=== PATIENT | male | born 1960 | race Caucasian/White ===

== ENCOUNTER 2017-11-27 12:13 | Emergency (ER) | payer BC, OTHER ==
[2017-11-27] MEDS ORDERED: LIDOCAINE 2% 10 ML MDV ONE (14:37)
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
[2017-11-27] MEDS ORDERED: TETANUS/DIPHTHERIA/PERTUSSIS 0.5 ML SYRINGE IM ONE (15:32)
[2017-11-27 16:12] VITALS: BP 143/77
== END 2017-11-27 16:06 | disposition home or self-care (01) ==
LOC: ED 12:13
DX: S61.412A Laceration without foreign body of left hand, initial encounter (principal); W26.0XXA Contact with knife, initial encounter; Y93.G1 Activity, food preparation and clean up; Y92.009 Unspecified place in unspecified non-institutional (private) residence as the place of occurrence of the external cause; F17.200 Nicotine dependence, unspecified, uncomplicated
CPT/HCPCS: 12002; 99283

== ENCOUNTER 2018-07-17 13:48 | Outpatient (CLI) | payer BC ==
--- NOTE | 2018-07-17 16:13 | XRAY Report ---
Reason: LEFT THUMB PAIN Procedure Date: 07/17/2018 Accession Number: [id number] / [id number] Procedure: XRN - Finger(s) LT CPT Code: FULL RESULT: EXAM: LEFT FIRST DIGIT RADIOGRAPHY EXAM DATE: 07/17/2018 02:00 PM. CLINICAL HISTORY: Left thumb pain. COMPARISON: None. TECHNIQUE: 3 views. FINDINGS: Bones: Normal. No fracture or bone lesion. Joints: There are mild degenerative changes of the first carpometacarpal joint. Along the dorsal aspect of the first interphalangeal joint is a calcific density with additional soft tissue calcification, felt to be a post-traumatic finding. Soft Tissues: Normal. No soft tissue swelling. IMPRESSION: Post-traumatic calcifications with possible bone fragment in the dorsal joint space of the first interphalangeal joint. Finding is best seen on the lateral view. RADIA
== END 2018-07-17 13:49 | disposition home or self-care (01) ==
LOC: DI.N 13:48
PROVIDERS: ATTEND Specialist
DX: M79.645 Pain in left finger(s) (principal); M25.842 Other specified joint disorders, left hand
CPT/HCPCS: 73140

== ENCOUNTER 2019-01-07 12:36 | Outpatient (CLI) | payer BC | END 2019-01-07 12:37 | disposition short-term general hospital (02) | LOC: EMS 12:36 | PROVIDERS: ATTEND Surgery | DX: S71.101A Unspecified open wound, right thigh, initial encounter (principal); W20.8XXA Other cause of strike by thrown, projected or falling object, initial encounter; Y93.89 Activity, other specified; Y92.009 Unspecified place in unspecified non-institutional (private) residence as the place of occurrence of the external cause | CPT/HCPCS: A0425; A0427 ==

== ENCOUNTER 2019-10-21 12:15 | Emergency (ER) | payer BC ==
[2019-10-21] MEDS ORDERED: HEPARIN 25000UNITS/500ML (D5W) 25,000 UNIT/500 ML BAG IV STA (12:41)
[2019-10-21] MEDS ORDERED: ASPIRIN CHEW 81 MG TABLET PO STA (12:41)
--- NOTE | 2019-10-21 12:42 | ED Physician Documentation ---
History of Present Illness - Stated complaint Stated Complaint: SOA,BILAT ARM/SHOULDER PX,DIZZY - CLINIC REFERRAL - Chief complaint Chief Complaint: Cardiac - Additonal information Additional information: This is a 59-year-old male who presents with chest pain radiating to his bilateral arms since last night. This began around dinnertime maybe around 7:30PM, he describes the pain as a pressure in the center of his chest and he has achiness in all deltoids and triceps. He has had a bit of nausea as well, no vomiting. He is a longtime smoker, he denies any history of diabetes. He has never had a cardiac catheterization. He Saw his primary care provider this morning who sent him here for further evaluation as they did not have an EKG machine and he was having chest pain. He currently states his chest pain is 5 out of 10, and his achiness in his arms is a bit worse at maybe 8-9 out of 10. Review of Systems Constitutional: denies: Fever Cardiac: reports: Chest pain / pressure Respiratory: denies: Dyspnea GI: reports: Nausea. denies: Abdominal Pain Musculoskeletal: denies: Neck pain Neurologic: denies: Generalized weakness, Near syncope Immunocompromised: denies: Immunocompromised PD PAST MEDICAL HISTORY - Past Medical History Respiratory: Pneumonia - Past Surgical History Past Surgical History: Yes HEENT: Rhinoplasty, Tonsil/Adenoidectomy - Present Medications Home Medications: Ambulatory Orders Medication Instructions Recorded Confirmed Ibuprofen [Motrin] 400 mg PO Q6H PRN #30 tablet 02/21/14 oxyCODONE/ACET 5/325 [Percocet 5 1 - 2 each PO Q6H PRN #20 tablet 02/21/14 mg/325 mg] - Allergies Allergies/Adverse Reactions: Allergies Allergy/AdvReac Type Severity Reaction Status Date / Time Penicillins Allergy Mild Rash Verified 10/21/19 12:27 - Social History Does the pt smoke?: Yes Smoking Status: Current every day smoker Does the pt drink ETOH?: No Does the pt have substance abuse?: No - Immunizations Immunizations are current?: Yes PD ED PE NORMAL - Vitals Vital signs reviewed: Yes - General General: Alert and oriented X 3, No acute distress - HEENT HEENT: PERRL - Neck Neck: Supple, no meningeal sign - Cardiac Cardiac: RRR, No murmur - Respiratory Respiratory: Clear bilaterally - Abdomen Abdomen: Soft, Non distended - Derm Derm: Warm and dry - Extremities Extremities: No deformity - Neuro Neuro: Alert and oriented X 3 - Psych Psych: Normal mood, Normal affect Results - Vitals Vitals: Vital Signs - 24 hr 10/21/19 10/21/19 12:24 12:59 Temperature 36.4 C L Heart Rate 58 L 77 Respiratory 18 16 Rate Blood Pressure 148/106 H 144/87 H O2 Saturation 98 95 Oxygen O2 Source Room air - EKG (time done) 12:31 Other comments: Other comments (Rate 57, rhythm sinus, there is ST elevation in the anteriorly leads and aVL, and depressions inferiorly. This is a STEMI.) - Labs Labs: Laboratory Tests 10/21/19 10/21/19 10/21/19 12:45 12:45 12:45 WBC 14.5 H RBC 5.17 Hgb 15.8 Hct 48.0 MCV 92.8 MCH 30.6 MCHC 32.9 RDW 12.4 Plt Count 271 MPV 8.6 Neut # (Auto) 12.0 H Lymph # (Auto) 1.8 [place]ill # (Auto) 0.6 Eos # (Auto) 0.1 Baso # (Auto) 0.1 Absolute Nucleated RBC 0.00 Nucleated RBC % 0.0 Sodium 134 L Potassium 3.7 Chloride 101 Carbon Dioxide 23 Anion Gap 10.0 BUN 11 Creatinine 0.8 Estimated GFR (MDRD) 99 Glucose 157 H Calcium 9.0 Total Bilirubin 0.5 AST 20 ALT 19 Alkaline Phosphatase 76 Troponin I High Sens 341.3 H* Total Protein 8.0 Albumin 4.4 Globulin 3.6 Albumin/Globulin Ratio 1.2 Lipase 23 - Rads (name of study) CXR Radiology: Other (Borderline cardiomegaly, increased perihilar opacity which may represent plethoric pulmonary vasculature, no infiltrate or pneumothorax) PD MEDICAL DECISION MAKING - ED course Complexity details: considered differential (ACS, STEMI,Pneumothorax, pleural effusion, dysrhythmia, musculoskeletal pain) ED course: Patient arrived via private vehicle for chest pain, with a concerning history of pain radiating to both arms. He had an EKG done in triage, and this shows an anterior lateral STEMI. He was placed on the monitor and pads, IV access was obtained labs are drawn he was given 324 mg of aspirin p.o., and started on a heparin drip. He is also given nitroglycerin as he is having chest pain and his blood pressure is a bit hypertensive at this time. The nitroglycerin did help with his pain. I contacted the [facility] emergency department immediately after reading the EKG, I spoke with Dr. Navarro who accepted the patient in transfer. His last p.o. intake was coffee this morning around 7 AM. I explained the plan of care and patient is in agreement he was transferred via ALS. He is still hav ing some pain, the medics were given morphine in route. He is hemodynamically stable. Labs returned after patient was transferred, he has leukocytosis which is nonspecific, he does have an elevated HS troponin at 341, consistent with his MN. Departure - Departure Disposition: 02 Transfer Acute Care Hosp Clinical Impression: STEMI (ST elevation myocardial infarction) Qualifiers: Involved coronary artery: unspecified coronary artery Qualified Code(s): I21.3 - ST elevation (STEMI) myocardial infarction of unspecified site Condition: Stable Discharge Date/Time: 10/21/19 13:15
[2019-10-21] MEDS: NITROGLYCERIN SL 0.4 MG TABLET SL STA ×2 (12:52→13:01)
[2019-10-21 12:58] LABS: BASOPHILS # (AUTO) 0.1 10^3/uL (0.0-0.1); BASOPHILS % (AUTO) 0.3 %; EOSINOPHILS # (AUTO) 0.1 10^3/uL (0.0-0.7); EOSINOPHILS % (AUTO) 0.3 %; HGB - HEMOGLOBIN 15.8 g/dL (14.0-18.0); LYMPHOCYTES # (AUTO) 1.8 10^3/uL (1.5-3.5); LYMPHOCYTES % (AUTO) 12.3 %; MEAN CORPUSCULAR HEMOGLOBIN 30.6 pg (27.0-31.0); MEAN CORPUSCULAR HGB CONC 32.9 g/dL (32.0-36.0); MEAN CORPUSCULAR VOLUME 92.8 fL (80.0-94.0); MEAN PLATELET VOLUME 8.6 fL (7.4-11.4); MONOCYTES # (AUTO) 0.6 10^3/uL (0.0-1.0); NEUTROPHILS % (AUTO) 82.5 %; PLT - PLATELET COUNT 271 10^3/uL (130-450); RED BLOOD COUNT 5.17 10^6/uL (4.70-6.10); RED CELL DISTRIBUTION WIDTH 12.4 % (12.0-15.0); WHITE BLOOD COUNT 14.5 x10^3/uL (4.8-10.8)
[2019-10-21 13:00] VITALS: BP 144/87
--- NOTE | 2019-10-21 13:09 | XRAY Report ---
Reason: Chest pain Procedure Date: 10/21/2019 Accession Number: [id number] / [id number] Procedure: XR - Chest 1 View X-Ray CPT Code: 01681 Final Report FULL RESULT: EXAM: CHEST RADIOGRAPHY EXAM DATE: 10/21/2019 12:58 PM. CLINICAL HISTORY: Chest pain. COMPARISON: CHEST 2 VIEW PA/LAT 02/21/2014 9:56 AM. TECHNIQUE: 1 view. FINDINGS: Lungs/Pleura: There is increase in perihilar reticular opacity. No evidence of lowering the train or effusion. There is no pneumothorax. Mediastinum: Borderline cardiomegaly. Other: Multiple rounded radiopacities projecting over the chest. IMPRESSION: 1. Borderline cardiomegaly. 2. There is increased perihilar opacity which may represent plethoric pulmonary vasculature; no direct evidence of significant lung edema. 3. No lobar infiltrate or pneumothorax. RADIA
[2019-10-21 13:17] LABS: ALBUMIN 4.4 g/dL (3.2-5.5); ALBUMIN/GLOBULIN RATIO 1.2 (1.0-2.2); BILIRUBIN,TOTAL 0.5 mg/dL (0.2-1.0); CREATININE 0.8 mg/dL (0.6-1.2)
== END 2019-10-21 13:15 | disposition short-term general hospital (02) ==
LOC: ED 12:15
DX: I21.3 ST elevation (STEMI) myocardial infarction of unspecified site (principal); F17.200 Nicotine dependence, unspecified, uncomplicated
CPT/HCPCS: 36415; 71045; 80053; 83690; 84484; 85025; 93005; 96374; 99284; 99285; A9270

== ENCOUNTER 2019-10-21 13:15 | Outpatient (CLI) | payer BC | END 2019-10-21 13:16 | disposition short-term general hospital (02) | LOC: EMS 13:15 | PROVIDERS: ATTEND Surgery | DX: I21.3 ST elevation (STEMI) myocardial infarction of unspecified site (principal) | CPT/HCPCS: A0425; A0426 ==

== ENCOUNTER 2019-12-19 17:40 | Outpatient (CLI) | payer BC | END 2019-12-19 17:41 | disposition short-term general hospital (02) | LOC: EMS 17:40 | PROVIDERS: ATTEND Surgery | DX: R00.2 Palpitations (principal); R53.1 Weakness; R42 Dizziness and giddiness; R50.9 Fever, unspecified | CPT/HCPCS: A0425; A0427 ==

== ENCOUNTER 2019-12-31 15:52 | Outpatient (CLI) | payer BC ==
[2019-12-31 16:15] LABS: BILIRUBIN,URINE NEGATIVE (NEGATIVE); GLUCOSE, URINE (UA) NEGATIVE (NEGATIVE); KETONES,URINE (UA) NEGATIVE (NEGATIVE); LEUKOCYTE ESTERASE, URINE NEGATIVE (NEGATIVE); NITRITE,URINE NEGATIVE (NEGATIVE); OCCULT BLOOD,URINE MODERATE (NEGATIVE); PROTEIN,URINE NEGATIVE (NEGATIVE); UROBILINOGEN,URINE 0.2 (NORMAL) E.U./dL (NORMAL)
[2019-12-31 16:31] LABS: CLARITY,URINE CLEAR (CLEAR)
[2019-12-31 16:32] LABS: BACTERIA,URINE None Seen /HPF (None Seen); RBC,URINE 0-5 /HPF (0-5); SQUAMOUS EPITHELIAL CELL,UR NONE SEEN (<= Few)
== END 2019-12-31 15:53 | disposition home or self-care (01) ==
LOC: LAB 15:52
PROVIDERS: ATTEND Internal Medicine
DX: R31.0 Gross hematuria (principal)
CPT/HCPCS: 81001

== ENCOUNTER 2021-01-26 12:05 | Outpatient (CLI) | payer BC ==
[2021-01-26] MEDS ORDERED: IOPAMIDOL-300 100 ML VIAL ONE (12:09)
[2021-01-26] MEDS ORDERED: IOPAMIDOL-300 100 ML VIAL IVP ONE (13:43)
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
== END 2021-01-26 12:06 | disposition home or self-care (01) ==
LOC: DI 12:05
PROVIDERS: ATTEND Otolaryngology Plastic Surgery within the Head & Neck
DX: C02.9 Malignant neoplasm of tongue, unspecified (principal); C76.0 Malignant neoplasm of head, face and neck
CPT/HCPCS: 70491; Q9967

== ENCOUNTER 2022-10-13 19:05 | Emergency (ER) | payer OTHER ==
[2022-10-13 19:22] VITALS: BP 132/74
[2022-10-13] MEDS ORDERED: NIRMATRELVIR/RITONAVIR PREPACK PO STA (19:27)
--- NOTE | 2022-10-13 20:05 | ED Physician Documentation ---
PD HPI DYSPNEA - Stated complaint Stated Complaint: C+,FATIGUE - Chief complaint Chief Complaint: Resp - History obtained from History obtained from: Patient - Additional information Additional information: 62-year-old gentleman with history of COPD but not on any medications presents with symptomatic COVID starting this morning with a positive test at home and was advised to come here for packs of it. He is not short of breath. Review of Systems Constitutional: reports: Chills, Myalgias Respiratory: denies: Dyspnea, Cough PD PAST MEDICAL HISTORY - Past Medical History Respiratory: Pneumonia - Past Surgical History Past Surgical History: Yes HEENT: Rhinoplasty, Tonsil/Adenoidectomy - Present Medications Home Medications: Ambulatory Orders Medication Instructions Recorded Confirmed Ibuprofen [Motrin] 400 mg PO Q6H PRN #30 tablet 02/21/14 oxyCODONE/ACET 5/325 [Percocet 5 1 - 2 each PO Q6H PRN #20 tablet 02/21/14 mg/325 mg] - Allergies Allergies/Adverse Reactions: Allergies Allergy/AdvReac Type Severity Reaction Status Date / Time Penicillins Allergy Mild Rash Verified 10/13/22 19:23 - Social History Does the pt smoke?: Yes Smoking Status: Current every day smoker Does the pt drink ETOH?: No Does the pt have substance abuse?: No - Immunizations Immunizations are current?: Yes PD ED PE NORMAL - Vitals Vital signs reviewed: Yes - General General: Alert and oriented X 3, No acute distress - Respiratory Respiratory: No respiratory distress - Neuro Neuro: Alert and oriented X 3, Normal speech Results - Vitals Vitals: Vital Signs - 24 hr 10/13/22 19:14 Temperature 36.4 C L Heart Rate 81 Respiratory 17 Rate Blood Pressure 132/74 H O2 Saturation 96 Oxygen O2 Source Room air PD Medical Decision Making - ED course ED course: 62-year-old gentleman presents with symptomatic COVID albeit not short of breath nor hypoxic requesting antiviral therapy. He is not on any home medications kevon t would interact with antivirals and was dispensed Paxlovid. Departure - Departure Disposition: Home, Self Care Clinical Impression: COVID-19 Condition: Good Record reviewed to determine appropriate education?: Yes Instructions: ED Viral Syndrome Comments: You are seen today for COVID. You need to quarantine per CDC guidelines. You received a course of paxlovid antiviral medication. Return if worse. Discharge Date/Time: 10/13/22 20:09
== END 2022-10-13 20:09 | disposition home or self-care (01) ==
LOC: ED 19:05
DX: U07.1 COVID-19 (principal); J44.9 Chronic obstructive pulmonary disease, unspecified; F17.200 Nicotine dependence, unspecified, uncomplicated
CPT/HCPCS: 99282; 99283; J3490